=== PATIENT | female | born 1965 | race Hispanic/Latino ===

== ENCOUNTER 2019-09-16 09:14 | Outpatient (CLI) | payer OTHER ==
--- NOTE | 2019-09-16 11:38 | Ultrasound Report ---
Ultrasound-guided right breast nodule biopsy HISTORY: ABNORMAL MAMMOGRAM. Hypoechoic reported mass at the 8-9:00 position of the right breast. COMPARISON: Right breast ultrasound from 09/03/2019 PROCEDURE: The risks (including but not limited to bleeding and infection) and benefits were explain ed to the patient and informed consent was obtained. A time out procedure was performed. The proced ure site was prepped and draped in the usual sterile fashion and lidocaine was used for local anesthe jonathan. Under direct ultrasound guidance, a 14-gauge biopsy needle was advanced to the peripheral margin of t he right breast nodule located at the 8:30 position from a lateral approach. A total of 2 separate bi opsies were performed with samples placed directly in formalin. Following, a postsurgical clip was pl aced directly within the mostly collapsed complex cyst. The patient tolerated the procedure well with no complications. IMPRESSION: 1. Complex left breast cyst at the 8:30 location. 2. Technically successful ultrasound-guided biopsy of a complex cyst which was mostly collapsed after 2 biopsies. An addendum will be made at a later date once pathology results are completed. Signer Name: Chas Ivory MD Signed: 09/16/2019 11:34 AM Workstation Name: [id number]
--- NOTE | 2019-09-16 11:54 | Mammography Report ---
DIGITAL DIAGNOSTIC MAMMOGRAM WITH CAD, -- 09/16/2019 INDICATION: POST CLIP RT TECHNIQUE: Digital right mammographic imaging was performed. This examination was interpreted with the benefit of Computer-aided Detection analysis. COMPARISON: Right breast ultrasound from today and 09/03/2019 FINDINGS: Breast Density: There are scattered areas of fibroglandular density. Satisfactory biopsy clip in the right breast density. IMPRESSION: Follow up recommendation: No recall. Post biopsy imaging. A "normal" or negative report should not discourage follow up or biopsy of a clinically significant f inding. A written summary of these findings will be mailed to the patient. The patient will be entered into a mammography reporting system which will generate a reminder letter for the patient's next appointmen t at the appropriate interval. According to the [employer], yearly mammograms are recommended starting at age 40 and continuing as long as a woman is in good health. Breast MRI is recommended for women with an iman roximately 20-25% or greater lifetime risk of breast cancer, including women with a strong family his tory of breast or ovarian cancer and women who have been treated for Hodgkin's disease. Signer Name: Chas Ivory MD Signed: 09/16/2019 11:49 AM Workstation Name: [id number]
== END 2019-09-16 09:15 | disposition home or self-care (01) ==
LOC: SPVWC 09:14
PROVIDERS: ATTEND Internal Medicine
DX: N63.13 Unspecified lump in the right breast, lower outer quadrant (principal); N60.02 Solitary cyst of left breast; N60.21 Fibroadenosis of right breast
CPT/HCPCS: 88305